=== PATIENT | female | born 1950 | race Two or more races ===

== ENCOUNTER 2023-11-19 07:28 | Day surgery (SDC) | payer MEDICARE ==
[2023-11-18 12:53] VITALS: BMI 21.7
[2023-11-19] MEDS ORDERED: Lidocaine 2% PF 5 ML VIAL ONE (08:26)
[2023-11-19] MEDS ORDERED: PROPOFOL 40 ML ONE (08:26)
[2023-11-19] MEDS ORDERED: Ondansetron PF 4 MG/2 ML Vial ONE (08:26)
[2023-11-19] MEDS ORDERED: Fentanyl 250 MCG/5 ML VIAL ONE (08:26)
[2023-11-19] MEDS ORDERED: Dexamethasone 4 mg/ml Vial ONE (08:26)
[2023-11-19] MEDS ORDERED: Rocuronium Bromide 10 MG/ML (10ML VIAL) ONE (08:26)
[2023-11-19] MEDS ORDERED: Midazolam HCl 2 mg/2 ml Vial ONE (08:26)
[2023-11-19] MEDS ORDERED: EPINEPHrine 1 MG/ML VIAL ONE (08:44)
[2023-11-19] MEDS ORDERED: Bupivacaine PF 0.5% 30 ML VIAL ONE (08:45)
[2023-11-19] MEDS ORDERED: CEFAZOLIN 2 GM VIAL ONE (08:49)
[2023-11-19] MEDS ORDERED: SUGAMMADEX SODIUM 200 MG/2 ML VIAL ONE (09:03)
[2023-11-19] MEDS ORDERED: fentaNYL 50 mcg/mL 1 mL Vial ONE (12:18)
[2023-11-19] MEDS ORDERED: Meperidine HCl/PF 25 MG (1 mL) VIAL ONE (12:31)
== END 2023-11-19 14:50 | disposition home or self-care (01) ==
LOC: EDSEX → CSHSDC 07:28
PROVIDERS: ATTEND Surgery
PROC: 0YQA4ZZ Repair Bilateral Inguinal Region, Percutaneous Endoscopic Approach (ICD-10-PCS; principal; 2023-11-19)
DX: K40.20 Bilateral inguinal hernia, without obstruction or gangrene, not specified as recurrent (principal); E03.9 Hypothyroidism, unspecified; E78.5 Hyperlipidemia, unspecified; I10 Essential (primary) hypertension; F10.90 Alcohol use, unspecified, uncomplicated; Z88.2 Allergy status to sulfonamides; Z88.8 Allergy status to other drugs, medicaments and biological substances; Z79.890 Hormone replacement therapy; Z79.899 Other long term (current) drug therapy; Z90.49 Acquired absence of other specified parts of digestive tract; Z98.890 Other specified postprocedural states
CPT/HCPCS: 49650; 93005; C1713; J0171; J3010; 93010; J1100; J2001; J2175; J2250; J2405; J2704; S0020